=== PATIENT | female | born 1960 | race Caucasian/White ===

== ENCOUNTER → 2016-06-04 | Outpatient (CLI) | payer MEDICAID | LOC: FIMAGING 12:58 | DX: Z12.31 Encounter for screening mammogram for malignant neoplasm of breast (principal) | CPT/HCPCS: G0202 ==

== ENCOUNTER 2016-10-06 12:34 | Day surgery (SDC) | payer MEDICAID ==
[2016-10-06] MEDS ORDERED: MIDAZOLAM 2 MG/2 ML VIAL ONE (13:12)
[2016-10-06] MEDS ORDERED: fentaNYL 100 MCG/2 ML INJ ONE (13:12)
--- NOTE | 2016-10-06 13:12 | PDPROPOC ---
Sedation Plan of Care Sedation Plan of Care: vital signs stable ASA Classification: ASA 1 Mallampati Score: Class 1 332 Rule: 332
--- NOTE | 2016-10-06 13:17 | PDGENHP ---
History & Physical Chief Complaint: History of adenomas. Family h/o CRC History of Present Illness: No c/o Relevant Physical Exam: Chest CTA, Heart exam WNL.
[2016-10-06 13:20] VITALS: TEMP 98.1
--- NOTE | 2016-10-06 13:41 | POSTOPPROG ---
Post Op Note Date of Operation: 10/06/16 Surgeon: Mike Mota Anesthesia: IV Sedation Pre-op Diagnosis: h/o polyps Post-op Diagnosis: same Procedure: cln Findings: normal exam Inf/Abcess present in the surg proc area at time of surgery?: No Complications: none
[2016-10-06 14:18] VITALS: BP 88/38; PULSE 64; RESP 14; O2SAT 96
--- NOTE | 2016-10-07 00:22 | GPN ---
[f rep st] PROCEDURE NOTE INDICATIONS: This patient is a 55-year-old female with personal history of adenomas, family history of colon cancer, presents for vigilant colon cancer screening. PROCEDURE: After proper consent was obtained, the patient was placed in the left lateral decubitus position, received 10 mg intravenous Versed and 150 mcg intravenous fentanyl. Video colonoscope was introduced through the anus and rectum, up the left colon, across the transver se colon, down the right colon to the cecum. The findings are as follows: Normal colonoscopic exam with no polyps, tumors, or lesions noted. At this point, instrument was removed. The patient tolerated the procedure well and was returned to recovery in stable condition. RECOMMENDATIONS: The patient should continue vigilant colon cancer screening with next colonoscopy in 5 years' time, and I will put her name in my reminder file. /[id number]/MODL
== END 2016-10-06 15:06 | disposition home or self-care (01) ==
LOC: FSGY 12:34
PROVIDERS: ATTEND Internal Medicine Gastroenterology
PROC: 0DJD8ZZ Inspection of Lower Intestinal Tract, Via Natural or Artificial Opening Endoscopic (ICD-10-PCS; principal; 2016-10-06 13:00)
DX: Z12.11 Encounter for screening for malignant neoplasm of colon (principal); Z80.0 Family history of malignant neoplasm of digestive organs
CPT/HCPCS: J2250; J3010

== ENCOUNTER → 2017-06-07 | Outpatient (CLI) | payer MEDICAID | LOC: FIMAGING 09:54 | PROVIDERS: ATTEND Family Medicine | DX: Z12.31 Encounter for screening mammogram for malignant neoplasm of breast (principal) ==

== ENCOUNTER → 2018-06-08 | Outpatient (CLI) | payer BC | LOC: FIMAGING 12:07 | PROVIDERS: ATTEND Family Medicine | DX: Z12.31 Encounter for screening mammogram for malignant neoplasm of breast (principal) ==